=== PATIENT | male | born 1980 | race Caucasian/White ===

== ENCOUNTER 2018-11-30 12:56 | Inpatient (IN) | payer OTHER ==
[2018-11-30 17:18] VITALS: BMI 23.6
--- NOTE | 2018-11-30 18:44 | HP ---
COWS - Scale Resting Pulse: 0= [place] 80 or Below Sweatin= Chills/Flushing Restless Observation: 1= Difficult to Sit Still Pupil Size: 0= Normal to Room Light Bone or Joint Aches: 2= Severe Diffuse Aches Runny Nose/ Eye Tearin= Nasal Congestion GI Upset > 30mins: 2= Nausea/Diarrhea Tremor Observation: 2= Slight Tremor Visible Yawning Observation: 1= 1-2x During Session Anxiety or Irritability: 2=Irritable/Anxious Goose Flesh Skin: 3=Piloerection COWS Score: 15 CIWA Score - Admission Criteria OASAS Guidelines: Admission for Medically Managed Detox: Requires at least one of the followin. CIWA greater than 12 2. Seizures within the past 24 hours 3. Delirium tremens within the past 24 hours 4. Hallucinations within the past 24 hours 5. Acute intervention needed for co occurring medical disorder 6. Acute intervention needed for co occurring psychiatric disorder 7. Severe withdrawal that cannot be handled at a lower level of care (continued vomiting, continued diarrhea, abnormal vital signs) requiring intravenous medication and/or fluids 8. Admission ROS [facility] Chief Complaint: I am here for detox from heroin Allergies/Adverse Reactions: Allergies Allergy/AdvReac Type Severity Reaction Status Date / Time No Known Allergies Allergy Verified 11/30/18 17:12 History of Present Illness: 38 year old male presents for detox from heroin. He reports his last treatment was 6 months ago at [facility] in [place], [place]. Exam Limitations: No Limitations - Ebola screening Have you traveled outside of the country in the last 21 days: No (N) Have you had contact with anyone from an Ebola affected area: No Have you been sick,other than usual withdrawal symptoms: No Do you have a fever: No - Review of Systems Constitutional: Chills, Loss of Appetite, Changes in sleep EENT: reports: Blurred Vision, Nose Congestion Respiratory: reports: No Symptoms reported Cardiac: reports: No Symptoms Reported GI: reports: Nausea, Poor Fluid Intake, Abdominal cramping : reports: No Symptoms Reported Musculoskeletal: reports: Back Pain, Joint Pain, Muscle Pain, Muscle Weakness Integumentary: reports: Flushing Neuro: reports: Headache, Tremors Endocrine: reports: No Symptoms Reported Hematology: reports: Anemia Psychiatric: reports: Anxious, Depressed Other Systems: Reviewed and Negative Patient History - Patient Medical History Hx Anemia: Yes Hx Asthma: No Hx Chronic Obstructive Pulmonary Disease (COPD): No Hx Cancer: No Hx Cardiac Disorders: No Hx Congestive Heart Failure: No Hx Hypertension: No Hx Hypercholesterolemia: No Hx Pacemaker: No HX Cerebrovascular Accident: No Hx Seizures: No Hx Dementia: No Hx Diabetes: No Hx Gastrointestinal Disorders: No Hx Liver Disease: No Hx Genitourinary Disorders: No Hx Sexually Transmitted Disorders: No Hx Renal Disease (ESRD): No Hx Thyroid Disease: No Hx Human Immunodeficiency Virus (HIV): No Hx Hepatitis C: No Hx Depression: Yes Hx Suicide Attempt: No Hx Bipolar Disorder: No Hx Schizophrenia: No - Patient Surgical History Past Surgical History: No - PPD History Previous Implant?: No Documented Results: Negative w/o proof Implanted On Prior [facility] Admission?: No PPD to be Administered?: No - Smoking Cessation Smoking history: Current every day smoker Have you smoked in the past 12 months: Yes Aproximately how many cigarettes per day: 10 Hx Chewing Tobacco Use: No Initiated information on smoking cessation: Yes 'Breaking Loose' booklet given: 11/30/18 - Substance & Tx. History Hx Alcohol Use: No Hx Substance Use: Yes Substance Use Type: Heroin Hx Substance Use Treatment: Yes - Substances abused Heroin Substance route: Injection Frequency: Daily Amount used: 40bags/day Age of first use: 33 Date of last use: 11/30/18 Family Disease History - Family Disease History Family History: Denies Admission Physical Exam BHS - Vital Signs Vital Signs: Vital Signs - 24 hr 11/30/18 17:12 Temperature 98.0 F Pulse Rate 74 Respiratory 16 Rate Blood Pressure 105/70 - Physical General Appearance: Yes: No Apparent Distress HEENTM: Yes: Hearing grossly Normal, Normocephalic, Normal Voice, MILO, Pharynx Normal Respiratory: Yes: Chest Non-Tender, Lungs Clear Neck: Yes: No masses,lesions,Nodules, Supple Breast: Yes: Breast Exam Deferred Cardiology: Yes: Regular Rhythm, Regular Rate, S1, S2 Abdominal: Yes: Normal Bowel Sounds, Non Tender, Soft Genitourinary: Yes: Within Normal Limits Back: Yes: Normal Inspection Musculoskeletal: Yes: full range of Motion, Gait Steady, Pelvis Stable Extremities: Yes: Tremors, Coldness Neurological: Yes: computer systems architect II-XII NML intact, Fully Oriented, Alert, Normal Mood/ Affect, Normal Response Integumentary: Yes: Clammy, Track Boudreaux Lymphatic: Yes: Within Normal Limits - Diagnostic (1) Heroin dependence Current Visit: Yes Status: Acute (2) Nicotine dependence Current Visit: Yes Status: Acute Qualifiers: Nicotine product type: cigarettes Substance use status: uncomplicated Qualified Code(s): F17.210 - Nicotine dependence, cigarettes, uncomplicated (3) Marijuana abuse Current Visit: Yes Status: Acute Cleared for Admission S - Detox or Rehab [facility] Level of Care: Medically Managed Detox Regimen/Protocol: Methadone Claeared for Rehab Admission: No Breathalyzer - Breathalyzer Breathalyzer: 0 Urine Drug Screen - Test Device Lot number: [id number] Expiration date: 09/17/20 - Control Is test valid?: Yes - Results Drug screen NEGATIVE: No Urine drug screen results: THC-Marijuana, JAYNE-Cocaine, FEN-Fentanyl, MOP-Opiates , OXY-Oxycodone Inpatient Rehab Admission - Rehab Decision to Admit Inpatient rehab admission?: No
[2018-11-30] MEDS ORDERED: MAGNESIUM HYDROX 2400MG/30ML ORAL SUSPENSION 30 ML CUP PO PRN (18:46)
[2018-11-30] MEDS ORDERED: ACETAMINOPHEN 325 MG TABLET (FP) PO PRN ×2 (18:46)
[2018-11-30] MEDS ORDERED: MAGNESIUM CITRATE 300 ML BOTTLE PO PRN (18:46)
[2018-11-30] MEDS ORDERED: METHADONE HCL 10 MG TABLET (FOR DETOX USE ONLY) PO ONE (18:46)
[2018-11-30] MEDS ORDERED: BISMUTH SUBSALICYLATE 524 MG/30 ML UD PO PRN (18:46)
[2018-11-30] MEDS ORDERED: IBUPROFEN 400 MG TABLET (FP) PO PRN (18:46)
[2018-11-30] MEDS ORDERED: cloNIDine HCL 0.1 MG TABLET PO PRN (18:46)
[2018-11-30] MEDS ORDERED: MAG HYDROX/AL HYDROX/SIMETH 30 ML UNIT-DOSE CUP PO PRN (18:46)
[2018-11-30] MEDS ORDERED: MELATONIN 5 MG TABLETS PO PRN (18:46)
[2018-11-30] MEDS ORDERED: NICOTINE POLACRILEX 2 MG GUM BUC PRN (18:46)
[2018-11-30] MEDS ORDERED: MENTHOL/PHENOL 1 EACH UD MM PRN (18:46)
[2018-11-30] MEDS: NICOTINE 14 MG/24 HOURS TOPICAL PATCH TD SCH (20:35)
[2018-11-30] MEDS: THIAMINE HCL 100 MG TABLET (FP) PO SCH (22:24)
--- NOTE | 2018-12-01 08:53 | EKG ---
Test Reason : Blood Pressure : / mmHG Vent. Rate : 063 BPM Atrial Rate : 063 BPM P-R Int : 136 ms QRS Dur : 092 ms QT Int : 420 ms P-R-T Axes : 044 061 043 degrees QTc Int : 429 ms NORMAL SINUS RHYTHM WITH SINUS ARRHYTHMIA MINIMAL VOLTAGE CRITERIA FOR LVH, MAY BE NORMAL VARIANT BORDERLINE ECG NO PREVIOUS ECGS AVAILABLE Confirmed by ANILA CHAPIN, ELADIA ([id number]) on 12/01/2018 8:53:23 AM Referred By: OSCAR MARX Confirmed By:ELADIA HIGH MD
[2018-12-01] MEDS ORDERED: METHADONE HCL 5 MG TABLET (FOR DETOX USE ONLY) PO ONE (10:00)
[2018-12-01] MEDS: PRENATAL VITAMINS W/ FOLIC ACID TABLET (FP) PO SCH (10:11)
[2018-12-01] MEDS: NICOTINE 14 MG/24 HOURS TOPICAL PATCH TD SCH (10:13)
[2018-12-01] MEDS: METHOCARBAMOL 500 MG TABLET PO PRN (10:13)
[2018-12-01 10:19] LABS: ALBUMIN 3.4 g/dl (3.4-5.0); BILIRUBIN,TOTAL 0.5 mg/dL (0.2-1); BLOOD UREA NITROGEN 18.1 mg/dL (7-18); CALCIUM 8.7 mg/dL (8.5-10.1); POTASSIUM 4.5 mmol/L (3.5-5.1)
[2018-12-01 10:22] LABS: HEMATOCRIT 33.4 % (35.4-49); HEMOGLOBIN 11.4 GM/dL (11.7-16.9); MCH 31.1 pg (25.7-33.7); MEAN CELL VOLUME 91.3 fl (80-96); MEAN PLT VOLUME 8.8 fl (7.5-11.1); RBC 3.66 M/mm3 (4.00-5.60); RDW 12.6 % (11.9-15.9); WHITE BLOOD COUNT 3.8 K/mm3 (4.0-10.0)
[2018-12-01 10:38] LABS: PLATELET COUNT 269 K/MM3 (134-434)
--- NOTE | 2018-12-01 11:10 | PN ---
[facility] COWS - Scale Resting Pulse: 0= [place] 80 or Below Sweatin= Chills/Flushing Restless Observation: 1= Difficult to Sit Still Pupil Size: 1= Pupils >than Normal Bone or Joint Aches: 1= Mild Discomfort Runny Nose/ Eye Tearin= Nasal Congestion GI Upset > 30mins: 1= Stomach Cramp Tremor Observation of Outstretched Hands: 1= Tremor [place], Not Seen Yawning Observation: 2= >3x During Session Anxiety or Irritability: 1=Feels Anxious/Irritable Goose Flesh Skin: 3=Piloerection COWS Score: 13 S Progress Note (SOAP) Subjective: 38 years old male admitted on 11/30/18 for opiate withdrawal sx denies medical issues doing well with methadone detox regimen discuss medication assisted treatment program Objective: 12/01/18 11:12 Vital Signs Temperature 98.2 F 12/01/18 09:26 Pulse Rate 57 L 12/01/18 09:26 Respiratory Rate 18 12/01/18 09:26 Blood Pressure 95/52 L 12/01/18 09:26 O2 Sat by Pulse Oximetry (%) Laboratory Last Values WBC 3.8 K/mm3 (4.0-10.0) L 12/01/18 07:50 RBC 3.66 M/mm3 (4.00-5.60) L 12/01/18 07:50 Hgb 11.4 GM/dL (11.7-16.9) L 12/01/18 07:50 Hct 33.4 % (35.4-49) L 12/01/18 07:50 MCV 91.3 fl (80-96) 12/01/18 07:50 MCH 31.1 pg (25.7-33.7) 12/01/18 07:50 MCHC 34.0 g/dl (32.0-35.9) 12/01/18 07:50 RDW 12.6 % (11.9-15.9) 12/01/18 07:50 Plt Count 269 K/MM3 (134-434) 12/01/18 07:50 MPV 8.8 fl (7.5-11.1) 12/01/18 07:50 Sodium 139 mmol/L (136-145) 12/01/18 07:50 Potassium 4.5 mmol/L (3.5-5.1) 12/01/18 07:50 Chloride 105 mmol/L (98-107) 12/01/18 07:50 Carbon Dioxide 29 mmol/L (21-32) 12/01/18 07:50 Anion Gap 6 MMOL/L (8-16) L 12/01/18 07:50 BUN 18.1 mg/dL (7-18) H 12/01/18 07:50 Creatinine 1.0 mg/dL (0.55-1.3) 12/01/18 07:50 Est GFR (CKD-EPI)AfAm 110.94 12/01/18 07:50 Est GFR (CKD-EPI)NonAf 95.72 12/01/18 07:50 Random Glucose 79 mg/dL (74-106) 12/01/18 07:50 Calcium 8.7 mg/dL (8.5-10.1) 12/01/18 07:50 Total Bilirubin 0.5 mg/dL (0.2-1) 12/01/18 07:50 AST 22 U/L (15-37) 12/01/18 07:50 ALT 25 U/L (13-61) 12/01/18 07:50 Alkaline Phosphatase 91 U/L (45-117) 12/01/18 07:50 Total Protein 7.0 g/dl (6.4-8.2) 12/01/18 07:50 Albumin 3.4 g/dl (3.4-5.0) 12/01/18 07:50 lab noted Assessment: 12/01/18 11:13 opiate withdrawal sx Plan: continue opiate detox
[2018-12-01] MEDS ORDERED: hydrOXYzine HCL 25 MG TABLET (FP) PO ONE ×2 (12:15→15:00)
[2018-12-01] MEDS: THIAMINE HCL 100 MG TABLET (FP) PO SCH (22:20)
[2018-12-02 09:04] VITALS: BP 114/76; PULSE 57; TEMP 97.7
[2018-12-02] MEDS ORDERED: hydrOXYzine HCL 25 MG TABLET (FP) PO PRN (09:47)
[2018-12-02] MEDS ORDERED: cloNIDine HCL 0.1 MG TABLET PO PRN (09:48)
[2018-12-02] MEDS ORDERED: METHADONE HCL 10 MG TABLET (FOR DETOX USE ONLY) PO ONE (10:00)
[2018-12-02] MEDS: METHOCARBAMOL 500 MG TABLET PO PRN (10:17)
[2018-12-02] MEDS: PRENATAL VITAMINS W/ FOLIC ACID TABLET (FP) PO SCH (10:17)
[2018-12-02] MEDS: NICOTINE 14 MG/24 HOURS TOPICAL PATCH TD SCH (10:17)
--- NOTE | 2018-12-02 10:25 | DS ---
[facility] Detox Discharge Summary Admission Date: 11/30/18 Discharge Date: 12/02/18 - History Present History: Opioid Dependence Additional Comments: 38 years old male admitted on 11/30/18 for opiate withdrawal sx patient is doing well through out the detox stay feeling better today prefers to leave the detox today the counselor offers [facility] that the patient is willing to accept the rehab - Physical Exam Results Vital Signs: Vital Signs Temperature 97.7 F 12/02/18 09:03 Pulse Rate 57 L 12/02/18 09:03 Respiratory Rate 16 12/02/18 09:03 Blood Pressure 114/76 12/02/18 09:03 O2 Sat by Pulse Oximetry (%) Pertinent Admission Physical Exam Findings: opiate withdrawal sx Laboratory Last Values WBC 3.8 K/mm3 (4.0-10.0) L 12/01/18 07:50 RBC 3.66 M/mm3 (4.00-5.60) L 12/01/18 07:50 Hgb 11.4 GM/dL (11.7-16.9) L 12/01/18 07:50 Hct 33.4 % (35.4-49) L 12/01/18 07:50 MCV 91.3 fl (80-96) 12/01/18 07:50 MCH 31.1 pg (25.7-33.7) 12/01/18 07:50 MCHC 34.0 g/dl (32.0-35.9) 12/01/18 07:50 RDW 12.6 % (11.9-15.9) 12/01/18 07:50 Plt Count 269 K/MM3 (134-434) 12/01/18 07:50 MPV 8.8 fl (7.5-11.1) 12/01/18 07:50 Sodium 139 mmol/L (136-145) 12/01/18 07:50 Potassium 4.5 mmol/L (3.5-5.1) 12/01/18 07:50 Chloride 105 mmol/L (98-107) 12/01/18 07:50 Carbon Dioxide 29 mmol/L (21-32) 12/01/18 07:50 Anion Gap 6 MMOL/L (8-16) L 12/01/18 07:50 BUN 18.1 mg/dL (7-18) H 12/01/18 07:50 Creatinine 1.0 mg/dL (0.55-1.3) 12/01/18 07:50 Est GFR (CKD-EPI)AfAm 110.94 12/01/18 07:50 Est GFR (CKD-EPI)NonAf 95.72 12/01/18 07:50 Random Glucose 79 mg/dL (74-106) 12/01/18 07:50 Calcium 8.7 mg/dL (8.5-10.1) 12/01/18 07:50 Total Bilirubin 0.5 mg/dL (0.2-1) 12/01/18 07:50 AST 22 U/L (15-37) 12/01/18 07:50 ALT 25 U/L (13-61) 12/01/18 07:50 Alkaline Phosphatase 91 U/L (45-117) 12/01/18 07:50 Total Protein 7.0 g/dl (6.4-8.2) 12/01/18 07:50 Albumin 3.4 g/dl (3.4-5.0) 12/01/18 07:50 RPR Titer Nonreactive (NONREACTIVE) 12/01/18 07:50 lab noted - Treatment Hospital Course: Detox Protocol Followed, Detoxed Safely, Responded well, Discharged Condition Good, Rehab Referral Accepted Patient has Accepted a [facility] Referral [facility]: [facility] - Medication Discharge Medications: Ambulatory Orders NK [No Known Home Medication] 11/30/18 - Diagnosis (1) Heroin dependence Status: Acute (2) Nicotine dependence Status: Acute Qualifiers: Nicotine product type: cigarettes Substance use status: in withdrawal Qualified Code(s): F17.213 - Nicotine dependence, cigarettes, with withdrawal - AMA Did Patient Leave Against Medical Advice: No
--- NOTE | 2018-12-02 11:11 | CONSULT ---
[facility] Psychiatric Consult - Data Date of interview: 12/02/18 Admission source: [facility] Identifying data: Patient discharged this morning. Unable to complete psychiatric consultation.
[2018-12-03] MEDS ORDERED: METHADONE HCL 5 MG TABLET (FOR DETOX USE ONLY) PO ONE (06:00)
== END 2018-12-02 10:20 | disposition home or self-care (01) | DRG 773 ==
LOC: YASAS 12:56 → Y3N 19:42
PROVIDERS: ADMIT Surgery; ATTEND Surgery
PROC: HZ2ZZZZ Detoxification Services for Substance Abuse Treatment (ICD-10-PCS; principal; 2018-11-30)
DX: F11.23 Opioid dependence with withdrawal (principal); F12.10 Cannabis abuse, uncomplicated; F17.213 Nicotine dependence, cigarettes, with withdrawal; F32.9 Major depressive disorder, single episode, unspecified; Z86.2 Personal history of diseases of the blood and blood-forming organs and certain disorders involving the immune mechanism
CPT/HCPCS: 36415; 80053; 85027; 86480; 86593; 93005; 93010

== ENCOUNTER 2019-05-05 18:26 | Inpatient (IN) | payer OTHER ==
[2019-05-05 18:54] VITALS: BMI 24.5
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
[2019-05-05] MEDS ORDERED: ACETAMINOPHEN 325 MG TABLET (FP) PO PRN ×2 (19:57)
[2019-05-05] MEDS ORDERED: MAGNESIUM HYDROX 2400MG/30ML ORAL SUSPENSION 30 ML CUP PO PRN (19:57)
[2019-05-05] MEDS ORDERED: METHOCARBAMOL 500 MG TABLET PO PRN (19:57)
[2019-05-05] MEDS ORDERED: IBUPROFEN 400 MG TABLET (FP) PO PRN (19:57)
[2019-05-05] MEDS ORDERED: PROCHLORPERAZINE MALEATE 5 MG TABLET PO PRN (19:57)
[2019-05-05] MEDS ORDERED: BISMUTH SUBSALICYLATE 524 MG/30 ML UD PO PRN (19:57)
[2019-05-05] MEDS ORDERED: MENTHOL/PHENOL 1 EACH UD MM PRN (19:57)
[2019-05-05] MEDS ORDERED: MELATONIN 5 MG TABLETS PO PRN (19:57)
[2019-05-05] MEDS ORDERED: MAG HYDROX/AL HYDROX/SIMETH 30 ML UNIT-DOSE CUP PO PRN (19:57)
[2019-05-05] MEDS ORDERED: MAGNESIUM CITRATE 300 ML BOTTLE PO PRN (19:57)
[2019-05-05] MEDS ORDERED: cloNIDine HCL 0.1 MG TABLET PO PRN (19:59)
[2019-05-05] MEDS ORDERED: METHADONE HCL 10 MG TABLET (FOR DETOX USE ONLY) PO ONE (21:00)
[2019-05-05] MEDS: diazePAM 5 MG TABLET PO SCH (21:07)
[2019-05-05] MEDS: THIAMINE HCL 100 MG TABLET (FP) PO SCH (21:07)
[2019-05-05] MEDS ORDERED: QUEtiapine FUMARATE 50 MG TABLET PO ONE (22:00)
[2019-05-05] MEDS: SILVER SULFADIAZINE 1% TOP CREAM 50 GM JAR TP SCH (23:50)
[2019-05-06] MEDS: diazePAM 5 MG TABLET PO SCH ×3 (06:09→22:51)
--- NOTE | 2019-05-06 09:49 | EKG ---
Test Reason : Blood Pressure : / mmHG Vent. Rate : 073 BPM Atrial Rate : 073 BPM P-R Int : 144 ms QRS Dur : 092 ms QT Int : 382 ms P-R-T Axes : 041 059 044 degrees QTc Int : 420 ms NORMAL SINUS RHYTHM MINIMAL VOLTAGE CRITERIA FOR LVH, MAY BE NORMAL VARIANT ST ELEVATION, CONSIDER EARLY REPOLARIZATION BORDERLINE ECG WHEN COMPARED WITH ECG OF 30-NOV-2018 19:54, NO SIGNIFICANT CHANGE WAS FOUND Confirmed by MD Timbo, Sal ([id number]) on 05/06/2019 9:49:05 AM Referred By: JOSUE Confirmed By:Sal Izquierdo MD
[2019-05-06] MEDS ORDERED: METHADONE HCL 5 MG TABLET (FOR DETOX USE ONLY) ONE (09:52)
[2019-05-06] MEDS ORDERED: METHADONE HCL 10 MG TABLET (FOR DETOX USE ONLY) ONE (09:52)
[2019-05-06 09:56] LABS: HEMATOCRIT 32.6 % (35.4-49); HEMOGLOBIN 11.2 GM/dL (11.7-16.9); MCH 31.7 pg (25.7-33.7); MCHC 34.4 g/dl (32.0-35.9); MEAN CELL VOLUME 92.3 fl (80-96); PLATELET COUNT 232 K/MM3 (134-434); RBC 3.53 M/mm3 (4.00-5.60); RDW 13.1 % (11.9-15.9); WHITE BLOOD COUNT 4.7 K/mm3 (4.0-10.0)
[2019-05-06] MEDS ORDERED: METHADONE (DETOX) 20 MG, METHADONE (DETOX) 5 MG PO ONE (10:00)
--- NOTE | 2019-05-06 10:03 | PN ---
[facility] CIWA - CIWA Score Nausea/Vomitin-No Nausea/No Vomiting Muscle Tremors: 3 Anxiety: 3 Agitation: 3 Paroxysmal Sweats: 2 Orientation: 0-Oriented Tacttile Disturbances: 0-None Auditory Disturbances: 0-None Visual Disturbances: 0-None Headache: 0-None Present CIWA-Ar Total Score: 11 S COWS - Scale Resting Pulse: 0= [place] 80 or Below Sweatin= Chills/Flushing Restless Observation: 1= Difficult to Sit Still Pupil Size: 0= Normal to Room Light Bone or Joint Aches: 1= Mild Discomfort Runny Nose/ Eye Tearin= Runny Nose/Eyes GI Upset > 30mins: 0= None Tremor Observation of Outstretched Hands: 1= Tremor [place], Not Seen Yawning Observation: 2= >3x During Session Anxiety or Irritability: 2=Irritable/Anxious Goose Flesh Skin: 0=Smooth Skin COWS Score: 10 [facility] Progress Note (SOAP) Subjective: sweats shakes interrupted sleep body aches restless irritable Objective: 05/06/19 10:03 Vital Signs Temperature 98.2 F 05/06/19 09:28 Pulse Rate 79 05/06/19 09:28 Respiratory Rate 18 05/06/19 09:28 Blood Pressure 129/86 05/06/19 09:28 O2 Sat by Pulse Oximetry (%) Laboratory Tests 05/06/19 08:00 WBC 4.7 RBC 3.53 L Hgb 11.2 L Hct 32.6 L MCV 92.3 MCH 31.7 MCHC 34.4 RDW 13.1 Plt Count 232 MPV 9.0 rest of labs pending aaox3 ambulating no acute distress Assessment: 05/06/19 10:03 withdrawals Plan: continue detox pending labs increase fluids
[2019-05-06] MEDS: PRENATAL VITAMINS W/ FOLIC ACID TABLET (FP) PO SCH (10:37)
[2019-05-06] MEDS: SILVER SULFADIAZINE 1% TOP CREAM 50 GM JAR TP SCH ×2 (10:39→22:52)
[2019-05-06 10:55] LABS: ALBUMIN 3.3 g/dl (3.4-5.0); BILIRUBIN,TOTAL 0.2 mg/dL (0.2-1); BLOOD UREA NITROGEN 12.8 mg/dL (7-18); CALCIUM 8.9 mg/dL (8.5-10.1); TOT PROT 6.4 g/dl (6.4-8.2)
[2019-05-06] MEDS: hydrOXYzine PAMOATE 25 MG CAPSULE (FP) PO PRN (22:51)
[2019-05-06] MEDS: THIAMINE HCL 100 MG TABLET (FP) PO SCH (22:51)
[2019-05-07] MEDS: diazePAM 5 MG TABLET PO SCH ×2 (05:59→17:37)
[2019-05-07] MEDS ORDERED: METHADONE HCL 10 MG TABLET (FOR DETOX USE ONLY) PO ONE (10:00)
--- NOTE | 2019-05-07 10:05 | PN ---
[facility] CIWA - CIWA Score Nausea/Vomitin-No Nausea/No Vomiting Muscle Tremors: 3 Anxiety: 2 Agitation: 2 Paroxysmal Sweats: 2 Orientation: 0-Oriented Tacttile Disturbances: 0-None Auditory Disturbances: 0-None Visual Disturbances: 0-None Headache: 0-None Present CIWA-Ar Total Score: 9 [facility] COWS - Scale Resting Pulse: 0= [place] 80 or Below Sweatin= Chills/Flushing Restless Observation: 1= Difficult to Sit Still Pupil Size: 0= Normal to Room Light Bone or Joint Aches: 1= Mild Discomfort Runny Nose/ Eye Tearin= None GI Upset > 30mins: 0= None Tremor Observation of Outstretched Hands: 1= Tremor [place], Not Seen Yawning Observation: 1= 1-2x During Session Anxiety or Irritability: 2=Irritable/Anxious Goose Flesh Skin: 0=Smooth Skin COWS Score: 7 S Progress Note (SOAP) Subjective: sweats irritable agitation anxiety interrupted sleep Objective: 05/07/19 10:20 Vital Signs Temperature 97.9 F 05/07/19 05:00 Pulse Rate 53 L 05/07/19 05:00 Respiratory Rate 18 05/07/19 05:00 Blood Pressure 108/68 05/07/19 05:00 O2 Sat by Pulse Oximetry (%) Laboratory Tests 05/06/19 05/06/19 05/06/19 08:00 08:00 08:00 WBC 4.7 RBC 3.53 L Hgb 11.2 L Hct 32.6 L MCV 92.3 MCH 31.7 MCHC 34.4 RDW 13.1 Plt Count 232 MPV 9.0 Sodium 142 Potassium 4.0 Chloride 108 H Carbon Dioxide 29 Anion Gap 5 L BUN 12.8 Creatinine 1.0 Est GFR (CKD-EPI)AfAm 110.17 Est GFR (CKD-EPI)NonAf 95.05 Random Glucose 86 Calcium 8.9 Total Bilirubin 0.2 AST 16 ALT 20 Alkaline Phosphatase 94 Total Protein 6.4 Albumin 3.3 L RPR Titer Nonreactive aaox3 ambulating no acute distress Assessment: 05/07/19 10:21 withdrawals Plan: continue detox increase fluids
[2019-05-07] MEDS: PRENATAL VITAMINS W/ FOLIC ACID TABLET (FP) PO SCH (10:50)
[2019-05-07] MEDS: SILVER SULFADIAZINE 1% TOP CREAM 50 GM JAR TP SCH ×2 (10:52→21:13)
[2019-05-07] MEDS: diazePAM 5 MG TABLET PO PRN ×3 (10:54→20:03)
--- NOTE | 2019-05-07 11:30 | CONSULT ---
[facility] Psychiatric Consult - Data Date of interview: 05/07/19 Admission source: [facility] Identifying data: Patient is a 39 year old [place] male, father of three, unemployed, domiciled, and is not currently receiving financial assistance. This is one of multiple admissions for patient. Patient admitted to for opiate and benzodiazepine dependence. Substance Abuse History: Smoking Cessation. Smoking history: Current every day smoker. Have you smoked in the past 12 months: Yes. Aproximately how many cigarettes per day: 10. Hx Chewing Tobacco Use: No. Initiated information on smoking cessation: Yes. 'Breaking Loose' booklet given: 05/05/19. - Substances abused. Heroin. Substance route: Injection. Frequency: Daily. Amount used: 20-40 bags. Age of first use: 33. Date of last use: 05/05/19 Medical History: Anemia Psychiatric History: Patient denies history of psychiatric hospitalizations and suicide attempt. Reports history of seeing a psychiatrist in a methadone program or when admitted to detox/rehab facilities. Reports past history of accepting wellbutrin and gabapentin but states it was ineffective. States that he was receiving treatment at [facility] inpatient rehab last year and was prescribed seroquel 200mg + 300mg HS. Denies accepting psychotropic medication since discharge. States that his depression is secondary to his drug use. At present he reports difficulty sleeping. Physical/Sexual Abuse/Trauma History: denies. Mental Status Exam - Mental Status Exam Alert and Oriented to: Time, Place, Person Cognitive Function: Good Patient Appearance: Well Groomed Mood: Withdrawn Patient Behavior: Appropriate, Cooperative Speech Pattern: Appropriate Voice Loudness: Normal Thought Process: Goal Oriented Thought Disorder: Not Present Hallucinations: Denies Suicidal Ideation: Denies Homicidal Ideation: Denies Insight/Judgement: Poor Sleep: Poorly Appetite: Fair Muscle strength/Tone: Normal Gait/Station: Normal Psychiatric Findings - Problem List ([place] 1, 2,3) (1) Substance-induced sleep disorder Current Visit: Yes Status: Acute (2) Heroin dependence Current Visit: Yes Status: Chronic (3) Marijuana abuse Current Visit: Yes Status: Chronic (4) Nicotine dependence Current Visit: Yes Status: Chronic Qualifiers: Nicotine product type: cigarettes (5) Substance induced mood disorder Current Visit: Yes Status: Acute - Initial Treatment Plan Initial Treatment Plan: Psychoeducation provided. Detoxification in progress. Will order Seroquel 100mg + Melatonin 10mg HS. Benefits and side effects discussed. Verbal consent given.
[2019-05-07] MEDS: hydrOXYzine PAMOATE 25 MG CAPSULE (FP) PO PRN (13:24)
[2019-05-07] MEDS: THIAMINE HCL 100 MG TABLET (FP) PO SCH (21:12)
[2019-05-07] MEDS ORDERED: MELATONIN 5 MG TABLETS PO PRN (22:00)
[2019-05-07] MEDS ORDERED: QUEtiapine FUMARATE 100 MG TABLET (FP) PO SCH (22:00)
[2019-05-08] MEDS: hydrOXYzine PAMOATE 25 MG CAPSULE (FP) PO PRN (02:02)
[2019-05-08] MEDS ORDERED: diazePAM 5 MG TABLET PO ONE (06:00)
--- NOTE | 2019-05-08 08:55 | PN ---
[facility] Progress Note Note: pt states that a week or two weeks ago he was at [facility] for a three day detox then he left and went to [facility] 4 day detox then he left and came to us for detox. Pt states he is feeling better and good enough to go to rehab for continued care. Pt states he failed to tell this information to admitting doctor because he wanted more methadone. Pt was educated on the purpose of detox and stability and moving on with his sobriety with rehab and maintaining sober. Pt was understanding advise and is willing to go to rehab today. Pt will receive his last dose of methadone and go to rehab
--- NOTE | 2019-05-08 08:58 | DS ---
[facility] Detox Discharge Summary Admission Date: 05/05/19 Discharge Date: 05/08/19 - History Present History: Cannabis Dependence, Opioid Dependence - Physical Exam Results Vital Signs: Vital Signs Temperature 97.5 F L 05/08/19 06:14 Pulse Rate 60 05/08/19 06:14 Respiratory Rate 18 05/08/19 06:14 Blood Pressure 118/60 05/08/19 06:14 O2 Sat by Pulse Oximetry (%) Pertinent Admission Physical Exam Findings: Vital Signs Temperature 97.5 F L 05/08/19 06:14 Pulse Rate 60 05/08/19 06:14 Respiratory Rate 18 05/08/19 06:14 Blood Pressure 118/60 05/08/19 06:14 O2 Sat by Pulse Oximetry (%) Laboratory Tests 05/06/19 05/06/19 05/06/19 08:00 08:00 08:00 WBC 4.7 RBC 3.53 L Hgb 11.2 L Hct 32.6 L MCV 92.3 MCH 31.7 MCHC 34.4 RDW 13.1 Plt Count 232 MPV 9.0 Sodium 142 Potassium 4.0 Chloride 108 H Carbon Dioxide 29 Anion Gap 5 L BUN 12.8 Creatinine 1.0 Est GFR (CKD-EPI)AfAm 110.17 Est GFR (CKD-EPI)NonAf 95.05 Random Glucose 86 Calcium 8.9 Total Bilirubin 0.2 AST 16 ALT 20 Alkaline Phosphatase 94 Total Protein 6.4 Albumin 3.3 L RPR Titer Nonreactive aaox3 ambulating no acute distress - Treatment Hospital Course: Detox Protocol Followed, Detoxed Safely, Responded well, Discharged Condition Good, Rehab Referral Accepted Patient has Accepted a Rehab Referral to: pt referred to [facility] rehab - Medication Discharge Medications: Ambulatory Orders NK [No Known Home Medication] 11/30/18 - Diagnosis (1) Substance induced mood disorder Current Visit: Yes Status: Acute (2) Substance-induced sleep disorder Current Visit: Yes Status: Acute (3) Marijuana abuse Current Visit: Yes Status: Chronic (4) Nicotine dependence Current Visit: Yes Status: Chronic Qualifiers: Nicotine product type: cigarettes Substance use status: uncomplicated Qualified Code(s): F17.210 - Nicotine dependence, cigarettes, uncomplicated (5) Opioid dependence with withdrawal Current Visit: Yes Status: Chronic - AMA Did Patient Leave Against Medical Advice: No
[2019-05-08] MEDS ORDERED: METHADONE HCL 10 MG TABLET (FOR DETOX USE ONLY) PO ONE (09:00)
[2019-05-08 09:49] VITALS: BP 138/81; PULSE 72; TEMP 97.3
[2019-05-08] MEDS ORDERED: METHADONE (DETOX) 10 MG, METHADONE (DETOX) 5 MG PO ONE (10:00)
[2019-05-09] MEDS ORDERED: METHADONE HCL 10 MG TABLET (FOR DETOX USE ONLY) PO ONE (10:00)
[2019-05-10] MEDS ORDERED: METHADONE HCL 5 MG TABLET (FOR DETOX USE ONLY) PO ONE (06:00)
== END 2019-05-08 09:45 | disposition home or self-care (01) | DRG 773 ==
LOC: YASAS 18:26 → Y6N 20:19
PROVIDERS: ADMIT Allergy & Immunology; ATTEND Allergy & Immunology
PROC: HZ2ZZZZ Detoxification Services for Substance Abuse Treatment (ICD-10-PCS; principal; 2019-05-05)
DX: F11.23 Opioid dependence with withdrawal (principal); F12.10 Cannabis abuse, uncomplicated; F17.210 Nicotine dependence, cigarettes, uncomplicated; F19.24 Other psychoactive substance dependence with psychoactive substance-induced mood disorder; F19.282 Other psychoactive substance dependence with psychoactive substance-induced sleep disorder; D64.9 Anemia, unspecified
CPT/HCPCS: 36415; 80053; 85027; 86593; 93005; 93010

== ENCOUNTER 2019-06-13 18:29 | Inpatient (IN) | payer OTHER ==
[2019-06-13 19:30] VITALS: BMI 23.4
--- NOTE | 2019-06-13 22:27 | HP ---
COWS - Scale Resting Pulse: 0= [place] 80 or Below Sweatin=Flushed/Facial Moisture Restless Observation: 0= Sits Still Pupil Size: 0= Normal to Room Light Bone or Joint Aches: 4=Acute Joint/Muscle Pain Runny Nose/ Eye Tearin= Nasal Congestion GI Upset > 30mins: 1= Stomach Cramp Tremor Observation: 0= None Yawning Observation: 1= 1-2x During Session Anxiety or Irritability: 2=Irritable/Anxious Goose Flesh Skin: 3=Piloerection COWS Score: 14 CIWA Score - Admission Criteria OASAS Guidelines: Admission for Medically Managed Detox: Requires at least one of the followin. CIWA greater than 12 2. Seizures within the past 24 hours 3. Delirium tremens within the past 24 hours 4. Hallucinations within the past 24 hours 5. Acute intervention needed for co occurring medical disorder 6. Acute intervention needed for co occurring psychiatric disorder 7. Severe withdrawal that cannot be handled at a lower level of care (continued vomiting, continued diarrhea, abnormal vital signs) requiring intravenous medication and/or fluids 8. Admitting History and Physical - Smoking History Smoking history: Current every day smoker Have you smoked in the past 12 months: Yes Aproximately how many cigarettes per day: 10 - Alcohol/Substance Use Hx Alcohol Use: No Admission ROS [facility] Chief Complaint: c/o withdrawal sx's Allergies/Adverse Reactions: Allergies Allergy/AdvReac Type Severity Reaction Status Date / Time No Known Allergies Allergy Verified 06/13/19 19:26 History of Present Illness: HERE FOR HEROIN DETOX. CLIENT IS SELF REFERRED KNOWN TO PROGRAM. PRESENTS WITH C /O WITHDRAWAL SX'S. SEEKING DETOX. CLIENT REPORTS DAILY HEROIN USE. IVDU REPORTED. LAST USE 1 DAY AGO. HX/O 8 OVERDOSE, DENIES BLACK OUTS, SEIZURE, AVH. LONGEST CLEAN TIME 2 MONTHS. DENIES ANY IN THE PAST 1 YEAR. LIVES W/ FAMILY, UNEMPLOYED, DENIES LEGALS Exam Limitations: No Limitations - Ebola screening Have you traveled outside of the country in the last 21 days: No (N) Have you had contact with anyone from an Ebola affected area: No Do you have a fever: No - Review of Systems Constitutional: Chills, Loss of Appetite, Malaise, Night Sweats, Changes in sleep EENT: reports: Nose Congestion Respiratory: reports: No Symptoms reported Cardiac: reports: No Symptoms Reported GI: reports: Nausea, Poor Appetite, Poor Fluid Intake, Abdominal cramping : reports: No Symptoms Reported Musculoskeletal: reports: Back Pain, Joint Pain Integumentary: reports: Sweating (facial moisture) Neuro: reports: No Symptoms reported Endocrine: reports: No Symptoms Reported Hematology: reports: No Symptoms Reported Psychiatric: reports: Orientated x3, Depressed (denies si) Other Systems: Reviewed and Negative Patient History - Patient Medical History Hx Anemia: Yes Hx Asthma: No Hx Chronic Obstructive Pulmonary Disease (COPD): No Hx Cancer: No Hx Cardiac Disorders: No Hx Congestive Heart Failure: No Hx Hypertension: No Hx Hypercholesterolemia: No Hx Pacemaker: No HX Cerebrovascular Accident: No Hx Seizures: No Hx Dementia: No Hx Diabetes: No Hx Gastrointestinal Disorders: No Hx Liver Disease: No Hx Genitourinary Disorders: No Hx Sexually Transmitted Disorders: No Hx Renal Disease (ESRD): No Hx Thyroid Disease: No Hx Human Immunodeficiency Virus (HIV): No Hx Hepatitis C: No Hx Depression: Yes Hx Suicide Attempt: No Hx Bipolar Disorder: No Hx Schizophrenia: No - Patient Surgical History Past Surgical History: No Hx Neurologic Surgery: No Hx Cataract Extraction: No Hx Cardiac Surgery: No Hx Lung Surgery: No Hx Breast Surgery: No Hx Breast Biopsy: No Hx Abdominal Surgery: No Hx Appendectomy: No Hx Cholecystectomy: No Hx Genitourinary Surgery: No Hx Section: No Hx Orthopedic Surgery: No Anesthesia Reaction: No - PPD History Previous Implant?: Yes Documented Results: Negative w/proof Implanted On Prior [facility] Admission?: Yes Date: 11/18/18 Results: tb gold neg PPD to be Administered?: No - Smoking Cessation Smoking history: Current every day smoker Have you smoked in the past 12 months: Yes Aproximately how many cigarettes per day: 10 Hx Chewing Tobacco Use: No Initiated information on smoking cessation: Yes 'Breaking Loose' booklet given: 06/13/19 - Substance & Tx. History Hx Alcohol Use: No Hx Substance Use: Yes Substance Use Type: Cocaine, Heroin, Marijuana, Opiates Hx Substance Use Treatment: Yes ([facility]) - Substances abused Heroin Substance route: Injection Frequency: Daily Amount used: 30-40 bags/day Age of first use: 34 Date of last use: 06/12/19 Admission Physical Exam BHS - Vital Signs Vital Signs: Vital Signs - 24 hr 06/13/19 19:27 Temperature 97.8 F Pulse Rate 69 Respiratory 16 Rate Blood Pressure 127/79 - Physical General Appearance: Yes: Moderate Distress, Irritable, Sweating HEENTM: Yes: EOMI, Normocephalic, Normal Voice, MILO, Pharynx Normal, Nasal Congestion, Rhinorrhea Respiratory: Yes: Chest Non-Tender, Lungs Clear, Normal Breath Sounds, No Respiratory Distress, No Accessory Muscle Use Neck: Yes: No masses,lesions,Nodules, Supple, Trachea in good position Breast: Yes: Breasts Symetrical Cardiology: Yes: Regular Rate, S1, S2, Tachycardia Abdominal: Yes: Non Tender, Soft, Increased Bowel Sounds Genitourinary: Yes: Within Normal Limits Back: Yes: Normal Inspection Musculoskeletal: Yes: full range of Motion, Gait Steady Extremities: Yes: Normal Range of Motion, Non-Tender Neurological: Yes: Fully Oriented, Alert, Motor Strength 5/5, Depressed Affect Integumentary: Yes: Moist, Track Raphael Lymphatic: Yes: Within Normal Limits - Diagnostic (1) Cocaine dependence, uncomplicated Current Visit: Yes Status: Acute (2) Cannabis dependence, uncomplicated Current Visit: Yes Status: Acute (3) Benzodiazepine abuse, episodic Current Visit: Yes Status: Suspected (4) Substance induced mood disorder Current Visit: Yes Status: Suspected (5) Nicotine dependence Current Visit: Yes Status: Chronic Qualifiers: Nicotine product type: cigarettes Substance use status: uncomplicated Qualified Code(s): F17.210 - Nicotine dependence, cigarettes, uncomplicated (6) Opioid dependence with withdrawal Current Visit: Yes Status: Acute (7) IVDU (intravenous drug user) Current Visit: Yes Status: Acute (8) Track raphael due to intravenous drug abuse Current Visit: Yes Status: Acute Cleared for Admission [facility] - Detox or Rehab [facility] Level of Care: Medically Managed Detox Regimen/Protocol: Methadone Claeared for Rehab Admission: No Breathalyzer - Breathalyzer Breathalyzer: 0 Urine Drug Screen - Test Device Lot number: [id number] Expiration date: 12/18/20 - Control Is test valid?: Yes - Results Drug screen NEGATIVE: No Urine drug screen results: THC-Marijuana, JAYNE-Cocaine, FEN-Fentanyl, MOP-Opiates , BZO-Benzodiazepines Inpatient Rehab Admission - Rehab Decision to Admit Inpatient rehab admission?: No
[2019-06-13] MEDS ORDERED: BISMUTH SUBSALICYLATE 524 MG/30 ML UD PO PRN (22:30)
[2019-06-13] MEDS ORDERED: cloNIDine HCL 0.1 MG TABLET PO PRN (22:30)
[2019-06-13] MEDS ORDERED: IBUPROFEN 400 MG TABLET (FP) PO PRN (22:30)
[2019-06-13] MEDS ORDERED: METHOCARBAMOL 500 MG TABLET PO PRN (22:30)
[2019-06-13] MEDS ORDERED: MELATONIN 5 MG TABLETS PO PRN (22:30)
[2019-06-13] MEDS ORDERED: NALOXONE HCL 0.4 MG/ML VIAL IM PRN (22:30)
[2019-06-13] MEDS ORDERED: ACETAMINOPHEN 325 MG TABLET (FP) PO PRN ×2 (22:30)
[2019-06-13] MEDS ORDERED: MAGNESIUM CITRATE 300 ML BOTTLE PO PRN (22:30)
[2019-06-13] MEDS ORDERED: DICYCLOMINE HCL 10 MG CAPSULE PO PRN (22:30)
[2019-06-13] MEDS ORDERED: MAGNESIUM HYDROX 2400MG/30ML ORAL SUSPENSION 30 ML CUP PO PRN (22:30)
[2019-06-13] MEDS ORDERED: MAG HYDROX/AL HYDROX/SIMETH 30 ML UNIT-DOSE CUP PO PRN (22:30)
[2019-06-13] MEDS ORDERED: MENTHOL/PHENOL 1 EACH UD MM PRN (22:30)
[2019-06-13] MEDS ORDERED: P-EPHED 60MG/TRIPROLIDI 2.5MG TABLET PO PRN (22:30)
[2019-06-13] MEDS ORDERED: ONDANSETRON *ODT* 4 MG TABLET SL PRN (22:30)
[2019-06-13] MEDS ORDERED: guaiFENesin 200 MG/10 ML 10 ML UNIT-DOSE CUPS PO PRN (22:30)
[2019-06-13] MEDS ORDERED: METHADONE HCL 10 MG TABLET (FOR DETOX USE ONLY) PO ONE (22:45)
[2019-06-14] MEDS ORDERED: METHADONE HCL 10 MG TABLET (FOR DETOX USE ONLY) ONE (09:41)
[2019-06-14] MEDS ORDERED: METHADONE HCL 5 MG TABLET (FOR DETOX USE ONLY) ONE (09:41)
[2019-06-14] MEDS ORDERED: METHADONE (DETOX) 20 MG, METHADONE (DETOX) 5 MG PO ONE (10:00)
[2019-06-14] MEDS: PRENATAL VITAMINS W/ FOLIC ACID TABLET (FP) PO SCH (10:34)
[2019-06-14] MEDS: NICOTINE 14 MG/24 HOURS TOPICAL PATCH TD SCH (10:35)
--- NOTE | 2019-06-14 11:06 | CONSULT ---
[facility] Psychiatric Consult - Data Date of interview: 06/14/19 Admission source: [facility] Identifying data: Director Of Pulmonary Unit approached patient for psychiatric consultation. Patient stated, "i'm good, I don't need to speak to you."
--- NOTE | 2019-06-14 15:03 | PN ---
BHS COWS - Scale Resting Pulse: 0= [place] 80 or Below Sweatin= No chills or Flushing Restless Observation: 1= Difficult to Sit Still Pupil Size: 0= Normal to Room Light Bone or Joint Aches: 1= Mild Discomfort Runny Nose/ Eye Tearin= Nasal Congestion GI Upset > 30mins: 1= Stomach Cramp Tremor Observation of Outstretched Hands: 0= None Yawning Observation: 1= 1-2x During Session Anxiety or Irritability: 2=Irritable/Anxious Goose Flesh Skin: 3=Piloerection COWS Score: 10 BHS Progress Note (SOAP) Subjective: Anxious, Stomach Cramping, Fatigue. Objective: PATIENT A & O X 3, OBSERVED AMBULATING ON DETOX UNIT UNASSISTED. IN NO ACUTE DISTRESS. 06/14/19 15:03 Vital Signs Temperature 97.7 F 06/14/19 10:00 Pulse Rate 69 06/14/19 10:00 Respiratory Rate 16 06/14/19 10:00 Blood Pressure 130/78 06/14/19 10:00 O2 Sat by Pulse Oximetry (%) RESULTS OF LABS FROM 05/06/2019 NOTED. 06/14/19 15:05 Assessment: 06/14/19 15:05 WITHDRAWAL SYMPTOMS. Plan: CONTINUE DETOX.
[2019-06-14] MEDS: THIAMINE HCL 100 MG TABLET (FP) PO SCH (22:30)
[2019-06-15] MEDS ORDERED: METHADONE HCL 10 MG TABLET (FOR DETOX USE ONLY) PO ONE (10:00)
[2019-06-15] MEDS: NICOTINE 14 MG/24 HOURS TOPICAL PATCH TD SCH (10:32)
[2019-06-15] MEDS: PRENATAL VITAMINS W/ FOLIC ACID TABLET (FP) PO SCH (10:32)
[2019-06-15] MEDS: hydrOXYzine PAMOATE 25 MG CAPSULE (FP) PO PRN (10:34)
--- NOTE | 2019-06-15 12:49 | PN ---
BHS COWS - Scale Resting Pulse: 0= [place] 80 or Below Sweatin= Chills/Flushing Restless Observation: 0= Sits Still Pupil Size: 0= Normal to Room Light Bone or Joint Aches: 2= Severe Diffuse Aches Runny Nose/ Eye Tearin= Runny Nose/Eyes GI Upset > 30mins: 1= Stomach Cramp Tremor Observation of Outstretched Hands: 2= Slight Tremor Visible Yawning Observation: 0= None Anxiety or Irritability: 1=Feels Anxious/Irritable Goose Flesh Skin: 0=Smooth Skin COWS Score: 9 BHS Progress Note (SOAP) Subjective: Bad anxiety, interrupted sleep Objective: 06/15/19 12:45 Last Vital Signs Temp Pulse Resp BP Pulse Ox 98.2 F 50 L 16 128/89 06/15/19 09:52 06/15/19 09:52 06/15/19 09:52 06/15/19 09:52 Bradycardia noted, pulse 50: asymptomatic Labs reviewed: from 05/06/19, no admission labs available (patient refused; cbc , cmp reordered in AM) Assessment: 06/15/19 12:48 Withdrawal sxs Plan: Continue detox Encouraged PO water intake Admission labs reordered in AM as patient refused (CBC, CMP) Bradycardia noted: asymptomatic, encouraged ambulation and to drink more water, obtain EKG if becomes symptomatic
[2019-06-15] MEDS: THIAMINE HCL 100 MG TABLET (FP) PO SCH (22:41)
[2019-06-16] MEDS: hydrOXYzine PAMOATE 25 MG CAPSULE (FP) PO PRN (07:28)
[2019-06-16 09:25] VITALS: TEMP 98.2
[2019-06-16 09:27] VITALS: BP 134/83; PULSE 59
--- NOTE | 2019-06-16 09:47 | PN ---
[facility] Progress Note Note: pt did not want to stay to complete detox he states he was in detox a few days ago and wants to leave now. Pt walked off the unit and states I need to get the fuck out of here fuck you all. pt then stormed out. security was called and made aware. pt is AMA.
--- NOTE | 2019-06-16 09:53 | DS ---
[facility] Detox Discharge Summary Admission Date: 06/13/19 - History Present History: Cannabis Dependence, Cocaine Dependence, Opioid Dependence - Physical Exam Results Vital Signs: Vital Signs Temperature 98.2 F 06/16/19 09:26 Pulse Rate 59 L 06/16/19 09:26 Respiratory Rate 16 06/16/19 09:26 Blood Pressure 134/83 06/16/19 09:26 O2 Sat by Pulse Oximetry (%) - Treatment Patient has Accepted a Rehab Referral to: pt refused all paperwork/refused to sign - Medication Discharge Medications: Ambulatory Orders NK [No Known Home Medication] 11/30/18 - Diagnosis (1) Cannabis dependence, uncomplicated Current Visit: Yes Status: Chronic (2) Cocaine dependence, uncomplicated Current Visit: Yes Status: Chronic (3) IVDU (intravenous drug user) Current Visit: Yes Status: Chronic (4) Opioid dependence with withdrawal Current Visit: Yes Status: Chronic (5) Track raphael due to intravenous drug abuse Current Visit: Yes Status: Chronic (6) Nicotine dependence Current Visit: Yes Status: Chronic Qualifiers: Nicotine product type: cigarettes Substance use status: uncomplicated Qualified Code(s): F17.210 - Nicotine dependence, cigarettes, uncomplicated (7) Benzodiazepine abuse, episodic Current Visit: Yes Status: Suspected (8) Substance induced mood disorder Current Visit: Yes Status: Suspected (9) Substance-induced sleep disorder Current Visit: No Status: Acute (10) Marijuana abuse Current Visit: No Status: Chronic - AMA Did Patient Leave Against Medical Advice: Yes
[2019-06-16] MEDS ORDERED: METHADONE (DETOX) 10 MG, METHADONE (DETOX) 5 MG PO ONE (10:00)
[2019-06-17] MEDS ORDERED: METHADONE HCL 10 MG TABLET (FOR DETOX USE ONLY) PO ONE (10:00)
[2019-06-18] MEDS ORDERED: METHADONE HCL 5 MG TABLET (FOR DETOX USE ONLY) PO ONE (06:00)
== END 2019-06-16 09:25 | disposition left against medical advice (07) | DRG 770 ==
LOC: YASAS 18:29 → Y6N 22:37
PROVIDERS: ADMIT Allergy & Immunology; ATTEND Allergy & Immunology
PROC: HZ2ZZZZ Detoxification Services for Substance Abuse Treatment (ICD-10-PCS; principal; 2019-06-13)
DX: F11.23 Opioid dependence with withdrawal (principal); F14.20 Cocaine dependence, uncomplicated; F12.20 Cannabis dependence, uncomplicated; F13.90 Sedative, hypnotic, or anxiolytic use, unspecified, uncomplicated; F17.210 Nicotine dependence, cigarettes, uncomplicated; F19.24 Other psychoactive substance dependence with psychoactive substance-induced mood disorder; L90.5 Scar conditions and fibrosis of skin; R00.1 Bradycardia, unspecified

== ENCOUNTER 2019-11-24 18:10 | Inpatient (IN) | payer OTHER ==
[2019-11-24 18:51] VITALS: BMI 23.3
--- NOTE | 2019-11-24 20:28 | HP ---
"COWS - Scale Resting Pulse: 0= [place] 80 or Below Sweatin= No chills or Flushing Restless Observation: 1= Difficult to Sit Still Pupil Size: 0= Normal to Room Light Bone or Joint Aches: 4=Acute Joint/Muscle Pain Runny Nose/ Eye Tearin= None GI Upset > 30mins: 1= Stomach Cramp Tremor Observation: 0= None Yawning Observation: 1= 1-2x During Session Anxiety or Irritability: 2=Irritable/Anxious Goose Flesh Skin: 3=Piloerection COWS Score: 12 CIWA Score Nausea/Vomitin-No Nausea/No Vomiting Muscle Tremors: None Anxiety: 4-Mod. Anxious/Guarded Agitation: 3 Paroxysmal Sweats: 3 Orientation: 2-Disoriented Date<2 days Tacttile Disturbances: 0-None Auditory Disturbances: 0-None Visual Disturbances: 0-None Headache: 0-None Present CIWA-Ar Total Score: 12 - Admission Criteria OASAS Guidelines: Admission for Medically Managed Detox: Requires at least one of the followin. CIWA greater than 12 2. Seizures within the past 24 hours 3. Delirium tremens within the past 24 hours 4. Hallucinations within the past 24 hours 5. Acute intervention needed for co occurring medical disorder 6. Acute intervention needed for co occurring psychiatric disorder 7. Severe withdrawal that cannot be handled at a lower level of care (continued vomiting, continued diarrhea, abnormal vital signs) requiring intravenous medication and/or fluids 8. Admitting History and Physical - Smoking History Smoking history: Current every day smoker Have you smoked in the past 12 months: Yes Aproximately how many cigarettes per day: 10 - Alcohol/Substance Use Hx Alcohol Use: No Admission [facility] Chief Complaint: seeking detox from heroin/ xanax. c/o withdrawal sx's Allergies/Adverse Reactions: Allergies Allergy/AdvReac Type Severity Reaction Status Date / Time No Known Allergies Allergy Verified 11/24/19 18:37 History of Present Illness: here for poly susbstance abuse. reports daily use of heroin and xanax. last use 430 am. self referred. known to program. last here 06/13/19-06/16/19 for detox. client reports relapsing immediately after dc. denies any inpatient detox since. utox + bup. [employer] technician check no rx.+ ivdu, 8 drug overdose, last being 2 months ago. client denies hx/o seizures, black outs or any clean time in the past 12 months. lives alone, unemployed, denies legals Search Terms: charles clarke, 1980Search Date: 11/24/2019 20:22:12 PM The Drug Utilization Report below displays all of the controlled substance prescriptions, if any, that your patient has filled in the last twelve months. The information displayed on this report is compiled from pharmacy submissions to the Department, and accurately reflects the information as submitted by the pharmacies. This report was requested by: Nawaf Roberson | Reference #: [id number] There are no results for the search terms that you entered. Exam Limitations: No Limitations - Ebola screening Have you traveled outside of the country in the last 21 days: No Have you had contact with anyone from an Ebola affected area: No Have you been sick,other than usual withdrawal symptoms: No Do you have a fever: No - Review of Systems Constitutional: Chills, Loss of Appetite, Malaise, Changes in sleep, Unintentional Wgt. Loss EENT: reports: Nose Congestion Respiratory: reports: No Symptoms reported Cardiac: reports: No Symptoms Reported GI: reports: Constipated, Poor Fluid Intake, Abdominal cramping : reports: No Symptoms Reported Musculoskeletal: reports: Back Pain, Joint Pain, Neck Pain Integumentary: reports: Other (track boudreaux) Neuro: reports: No Symptoms reported Endocrine: reports: No Symptoms Reported Hematology: reports: No Symptoms Reported Psychiatric: reports: Orientated x3, Anxious, Depressed (denies si) Other Systems: Reviewed and Negative Patient History - Patient Medical History Hx Anemia: No Hx Asthma: No Hx Chronic Obstructive Pulmonary Disease (COPD): No Hx Cancer: No Hx Cardiac Disorders: No Hx Congestive Heart Failure: No Hx Hypertension: No Hx Hypercholesterolemia: No Hx Pacemaker: No HX Cerebrovascular Accident: No Hx Seizures: No Hx Dementia: No Hx Diabetes: No Hx Gastrointestinal Disorders: No Hx Liver Disease: No Hx Genitourinary Disorders: No Hx Sexually Transmitted Disorders: No Hx Renal Disease (ESRD): No Hx Thyroid Disease: No Hx Human Immunodeficiency Virus (HIV): No Hx Hepatitis C: No Hx Depression: Yes (no meds) Hx Suicide Attempt: No Hx Bipolar Disorder: No Hx Schizophrenia: No Other Medical History: anxiety - Patient Surgical History Past Surgical History: No Hx Neurologic Surgery: No Hx Cataract Extraction: No Hx Cardiac Surgery: No Hx Lung Surgery: No Hx Breast Surgery: No Hx Breast Biopsy: No Hx Abdominal Surgery: No Hx Appendectomy: No Hx Cholecystectomy: No Hx Genitourinary Surgery: No Hx Section: No Hx Orthopedic Surgery: No Anesthesia Reaction: No - PPD History Previous Implant?: Yes Documented Results: Negative w/proof Date: 11/18/18 Results: tb gold neg PPD to be Administered?: Yes - Smoking Cessation Smoking history: Current every day smoker Have you smoked in the past 12 months: Yes Aproximately how many cigarettes per day: 10 Cigars Per Day: 0 Hx Chewing Tobacco Use: No Initiated information on smoking cessation: Yes 'Breaking Loose' booklet given: 11/24/19 - Substance & Tx. History Hx Alcohol Use: No Hx Substance Use: Yes Substance Use Type: Cocaine, Heroin, Tranquilizers (xanax) Hx Substance Use Treatment: Yes ([facility]) - Substances abused Heroin Substance route: Injection Frequency: Daily Amount used: 50 bags Age of first use: 34 Date of last use: 11/24/19 Cocaine Substance route: Injection Frequency: Daily Amount used: 1/2gm Age of first use: 22 Date of last use: 11/23/19 Alprazolam (Xanax) Substance route: Inhalation Frequency: Daily Amount used: 6mg Age of first use: 34 Date of last use: 11/23/19 Admission Physical Exam S - Vital Signs Vital Signs: Vital Signs - 24 hr 11/24/19 18:38 Temperature 97.7 F Pulse Rate 66 Respiratory 18 Rate Blood Pressure 110/76 - Physical General Appearance: Yes: Moderate Distress, Irritable, Anxious HEENTM: Yes: EOMI, Normocephalic, Normal Voice, MILO, Pharynx Normal, Nasal Congestion Respiratory: Yes: Chest Non-Tender, Lungs Clear, Normal Breath Sounds, No Respiratory Distress, No Accessory Muscle Use Neck: Yes: No masses,lesions,Nodules, Supple, Trachea in good position Breast: Yes: Breasts Symetrical Cardiology: Yes: Regular Rhythm, Regular Rate, S1, S2 Abdominal: Yes: Non Tender, Soft, Increased Bowel Sounds Genitourinary: Yes: Within Normal Limits (no c/o) Back: Yes: Normal Inspection Musculoskeletal: Yes: full range of Motion, Gait Steady Extremities: Yes: Normal Capillary Refill, Normal Range of Motion, Non-Tender, Other (track boudreaux to arms and rle) Neurological: Yes: Fully Oriented, Alert, Motor Strength 5/5, Depressed Affect Integumentary: Yes: Dry, Warm, Track Boudreaux Lymphatic: Yes: Within Normal Limits - Diagnostic (1) Sedative, hypnotic or anxiolytic dependence with withdrawal, uncomplicated Current Visit: Yes Status: Acute (2) Depressed affect Current Visit: Yes Status: Suspected (3) Cocaine dependence, uncomplicated Current Visit: Yes Status: Acute (4) IVDU (intravenous drug user) Current Visit: Yes Status: Acute (5) Nicotine dependence Current Visit: Yes Status: Chronic Qualifiers: Nicotine product type: cigarettes Substance use status: uncomplicated Qualified Code(s): F17.210 - Nicotine dependence, cigarettes, uncomplicated (6) Opioid dependence with withdrawal Current Visit: Yes Status: Acute (7) Track boudreaux due to intravenous drug abuse Current Visit: Yes Status: Acute (8) Substance induced mood disorder Current Visit: Yes Status: Suspected Cleared for Admission [facility] - Detox or Rehab [facility] Level of Care: Medically Managed Detox Regimen/Protocol: Methadone/Librium Claeared for Rehab Admission: No Breathalyzer - Breathalyzer Breathalyzer: 0 Urine Drug Screen - Test Device Lot number: [id number] Expiration date: 01/18/21 - Control Is test valid?: No - Results Drug screen NEGATIVE: No Urine drug screen results: JAYNE-Cocaine, FEN-Fentanyl, MOP-Opiates, BZO- Benzodiazepines Inpatient Rehab Admission - Rehab Decision to Admit Inpatient rehab admission?: No"
[2019-11-24] MEDS ORDERED: MAGNESIUM CITRATE 300 ML BOTTLE PO PRN (20:36)
[2019-11-24] MEDS ORDERED: P-EPHED 60MG/TRIPROLIDI 2.5MG TABLET PO PRN (20:36)
[2019-11-24] MEDS ORDERED: MENTHOL/PHENOL 1 EACH UD MM PRN (20:36)
[2019-11-24] MEDS ORDERED: DICYCLOMINE HCL 10 MG CAPSULE PO PRN (20:36)
[2019-11-24] MEDS ORDERED: IBUPROFEN 400 MG TABLET (FP) PO PRN (20:36)
[2019-11-24] MEDS ORDERED: METHOCARBAMOL 500 MG TABLET PO PRN (20:36)
[2019-11-24] MEDS ORDERED: MAG HYDROX/AL HYDROX/SIMETH 30 ML UNIT-DOSE CUP PO PRN (20:36)
[2019-11-24] MEDS ORDERED: chlordiazePOXIDE HCL 25 MG CAPSULE PO PRN (20:36)
[2019-11-24] MEDS ORDERED: ONDANSETRON *ODT* 4 MG TABLET SL ONE (20:36)
[2019-11-24] MEDS ORDERED: cloNIDine HCL 0.1 MG TABLET PO PRN (20:36)
[2019-11-24] MEDS ORDERED: BISMUTH SUBSALICYLATE 524 MG/30 ML UD PO PRN (20:36)
[2019-11-24] MEDS ORDERED: NALOXONE HCL 0.4 MG/ML VIAL IM PRN (20:36)
[2019-11-24] MEDS ORDERED: guaiFENesin 200 MG/10 ML 10 ML UNIT-DOSE CUPS PO PRN (20:36)
[2019-11-24] MEDS ORDERED: METHADONE HCL 10 MG TABLET (FOR DETOX USE ONLY) PO ONE (20:36)
[2019-11-24] MEDS ORDERED: ACETAMINOPHEN 325 MG TABLET (FP) PO PRN ×2 (20:36)
[2019-11-24] MEDS ORDERED: MAGNESIUM HYDROX 2400MG/30ML ORAL SUSPENSION 30 ML CUP PO PRN (20:36)
[2019-11-24] MEDS ORDERED: NICOTINE POLACRILEX 2 MG GUM BUC PRN (20:36)
[2019-11-24] MEDS: chlordiazePOXIDE HCL 25 MG CAPSULE PO SCH (22:16)
[2019-11-24] MEDS: THIAMINE HCL 100 MG TABLET (FP) PO SCH (22:16)
[2019-11-24] MEDS: MELATONIN 5 MG TABLETS PO SCH (22:28)
[2019-11-25] MEDS: chlordiazePOXIDE HCL 25 MG CAPSULE PO SCH (05:59)
[2019-11-25] MEDS: hydrOXYzine PAMOATE 25 MG CAPSULE (FP) PO PRN (05:59)
[2019-11-25] MEDS ORDERED: METHADONE HCL 5 MG TABLET (FOR DETOX USE ONLY) ONE (09:33)
[2019-11-25] MEDS ORDERED: METHADONE HCL 10 MG TABLET (FOR DETOX USE ONLY) ONE (09:33)
[2019-11-25] MEDS ORDERED: METHADONE (DETOX) 20 MG, METHADONE (DETOX) 5 MG PO ONE (10:00)
[2019-11-25] MEDS ORDERED: diazePAM 5 MG TABLET PO PRN (10:14)
--- NOTE | 2019-11-25 10:28 | CONSULT ---
[facility] Psychiatric Consult - Data Date of interview: 11/25/19 Admission source: Self-referred Identifying data: Mr Jackson is a 39 years old Black male, unemployed, living alone seeking detox treatment for opioid, cocaine and benzodiazepine Substance Abuse History: Reports history of heroin, cocaine and xanax use. Refer to addiction counselor's summary for further information Medical History: Unremarkable. Smokes 10 cigarettes daily Psychiatric History: Patient was approached multiple times at bedside. He has been sleeping all day. Told nursing staff:"I don't want to see psychiatrist"
[2019-11-25] MEDS: NICOTINE 21 MG/24 HOURS TOPICAL PATCH TD SCH (10:33)
[2019-11-25] MEDS: PRENATAL VITAMINS W/ FOLIC ACID TABLET (FP) PO SCH (10:33)
--- NOTE | 2019-11-25 11:24 | PN ---
S CIWA - CIWA Score Nausea/Vomitin Muscle Tremors: 2 Anxiety: 3 Agitation: 3 Paroxysmal Sweats: No Perspiration Orientation: 0-Oriented Tacttile Disturbances: 1-Very Mild Itch/Numbness Auditory Disturbances: 0-None Visual Disturbances: 0-None Headache: 2-Mild CIWA-Ar Total Score: 13 BHS COWS - Scale Resting Pulse: 0= ND 80 or Below Sweatin= No chills or Flushing Restless Observation: 3= Extraneous Movement Pupil Size: 1= Pupils >than Normal Bone or Joint Aches: 2= Severe Diffuse Aches Runny Nose/ Eye Tearin= Runny Nose/Eyes GI Upset > 30mins: 2= Nausea/Diarrhea Tremor Observation of Outstretched Hands: 2= Slight Tremor Visible Yawning Observation: 1= 1-2x During Session Anxiety or Irritability: 2=Irritable/Anxious Goose Flesh Skin: 0=Smooth Skin COWS Score: 15 BHS Progress Note (SOAP) Subjective: alert,irritable,anxious,interrupted sleep,pain in the body and jacinda k,tremor,nausea,diarrhea Objective: 11/25/19 11:22 Vital Signs Temperature 98.9 F 11/25/19 08:58 Pulse Rate 67 11/25/19 08:58 Respiratory Rate 18 11/25/19 08:58 Blood Pressure 124/75 11/25/19 08:58 O2 Sat by Pulse Oximetry (%) 99 11/25/19 06:34 11/25/19 11:23 patient woul like to hve blood tests in am not today Assessment: 11/25/19 11:23 withdrawal symptom Plan: continue detox methadone and valium regimen
--- NOTE | 2019-11-25 12:12 | EKG ---
Test Reason : Blood Pressure : / mmHG Vent. Rate : 056 BPM Atrial Rate : 056 BPM P-R Int : 140 ms QRS Dur : 092 ms QT Int : 416 ms P-R-T Axes : 032 058 040 degrees QTc Int : 401 ms SINUS BRADYCARDIA OTHERWISE NORMAL ECG WHEN COMPARED WITH ECG OF 05-MAY-2019 21:26, NO SIGNIFICANT CHANGE WAS FOUND Confirmed by MD Izquierdo Daniel ([id number]) on 11/25/2019 12:12:25 PM Referred By: Confirmed By:Sal Izquierdo MD
[2019-11-25] MEDS: diazePAM 5 MG TABLET PO SCH ×2 (14:07→22:14)
[2019-11-25] MEDS: THIAMINE HCL 100 MG TABLET (FP) PO SCH (22:14)
[2019-11-25] MEDS: MELATONIN 5 MG TABLETS PO SCH (22:15)
[2019-11-26] MEDS ORDERED: chlordiazePOXIDE HCL 25 MG CAPSULE PO SCH (05:00)
[2019-11-26] MEDS: hydrOXYzine PAMOATE 25 MG CAPSULE (FP) PO PRN (06:10)
[2019-11-26] MEDS: diazePAM 5 MG TABLET PO SCH (06:10)
[2019-11-26] MEDS: NICOTINE 21 MG/24 HOURS TOPICAL PATCH TD SCH (09:49)
[2019-11-26] MEDS: PRENATAL VITAMINS W/ FOLIC ACID TABLET (FP) PO SCH (09:50)
[2019-11-26 09:54] VITALS: BP 132/80; PULSE 55; TEMP 97.2
[2019-11-26] MEDS ORDERED: METHADONE HCL 10 MG TABLET (FOR DETOX USE ONLY) PO ONE (10:00)
--- NOTE | 2019-11-26 11:28 | PN ---
[facility] CIWA - CIWA Score Nausea/Vomitin-No Nausea/No Vomiting Muscle Tremors: 3 Anxiety: 3 Agitation: 3 Paroxysmal Sweats: 3 Orientation: 0-Oriented Tacttile Disturbances: 0-None Auditory Disturbances: 0-None Visual Disturbances: 0-None Headache: 1-Very Mild CIWA-Ar Total Score: 13 BHS COWS - Scale Resting Pulse: 0= NE 80 or Below Sweatin= Chills/Flushing Restless Observation: 1= Difficult to Sit Still Pupil Size: 0= Normal to Room Light Bone or Joint Aches: 2= Severe Diffuse Aches Runny Nose/ Eye Tearin= Nasal Congestion GI Upset > 30mins: 0= None Tremor Observation of Outstretched Hands: 1= Tremor [place], Not Seen Yawning Observation: 1= 1-2x During Session Anxiety or Irritability: 2=Irritable/Anxious Goose Flesh Skin: 0=Smooth Skin COWS Score: 9 [facility] Progress Note (SOAP) Subjective: agitation sweats shakes interrupted sleep Objective: 11/26/19 11:27 Vital Signs Temperature 97.2 F L 11/26/19 08:58 Pulse Rate 55 L 11/26/19 08:58 Respiratory Rate 18 11/26/19 08:58 Blood Pressure 132/80 11/26/19 08:58 O2 Sat by Pulse Oximetry (%) 100 11/26/19 05:30 pending labs [id number] lying in bed no acute distress Assessment: 11/26/19 11:27 withdrawals Plan: continue detox increase fluids
[2019-11-26] MEDS ORDERED: NALOXONE (NARCAN) HCL 4 MG/0.1 ML SPRAY NS ONE (12:04)
--- NOTE | 2019-11-26 12:04 | PN ---
[facility] Progress Note Note: pt did not want to stay and continue his detox. pt was advised of his purpose for detox and how a positive outcome can be available if he sticks to the detox protocol. pt was also advised to stay and prevent relapse, seizures, DT, OD and or loss, however, pt chose to sign out AMA. narcan kit sent to his pharmacy, pt was made aware.
--- NOTE | 2019-11-26 12:06 | DS ---
[facility] Detox Discharge Summary Admission Date: 11/24/19 - History Present History: Cannabis Dependence, Cocaine Dependence, Opioid Dependence, Sedative Dependence - Physical Exam Results Vital Signs: Vital Signs Temperature 97.2 F L 11/26/19 08:58 Pulse Rate 55 L 11/26/19 08:58 Respiratory Rate 18 11/26/19 08:58 Blood Pressure 132/80 11/26/19 08:58 O2 Sat by Pulse Oximetry (%) 100 11/26/19 05:30 Pertinent Admission Physical Exam Findings: Vital Signs Temperature 97.2 F L 11/26/19 08:58 Pulse Rate 55 L 11/26/19 08:58 Respiratory Rate 18 11/26/19 08:58 Blood Pressure 132/80 11/26/19 08:58 O2 Sat by Pulse Oximetry (%) 100 11/26/19 05:30 no blood work was drawn because pt refused aaox3 ambulating pt signed out AMA - Treatment Hospital Course: Rehab Referral Accepted - Medication Discharge Medications: Ambulatory Orders NK [No Known Home Medication] 11/30/18 - Diagnosis (1) Cocaine dependence, uncomplicated Status: Acute (2) IVDU (intravenous drug user) Status: Acute (3) Opioid dependence with withdrawal Status: Acute (4) Sedative, hypnotic or anxiolytic dependence with withdrawal, uncomplicated Status: Acute (5) Substance-induced sleep disorder Status: Acute (6) Track raphael due to intravenous drug abuse Status: Acute (7) Cannabis dependence, uncomplicated Status: Chronic (8) Marijuana abuse Status: Chronic (9) Nicotine dependence Status: Chronic Qualifiers: Nicotine product type: cigarettes Substance use status: uncomplicated Qualified Code(s): F17.210 - Nicotine dependence, cigarettes, uncomplicated (10) Benzodiazepine abuse, episodic Status: Suspected (11) Depressed affect Status: Suspected (12) Substance induced mood disorder Status: Suspected - AMA Did Patient Leave Against Medical Advice: Yes
[2019-11-27] MEDS ORDERED: chlordiazePOXIDE HCL 10 MG CAPSULE PO PRN
[2019-11-27] MEDS ORDERED: chlordiazePOXIDE HCL 10 MG CAPSULE PO SCH (05:00)
[2019-11-27] MEDS ORDERED: diazePAM 5 MG TABLET PO SCH (06:00)
[2019-11-27] MEDS ORDERED: METHADONE (DETOX) 10 MG, METHADONE (DETOX) 5 MG PO ONE (10:00)
[2019-11-28] MEDS ORDERED: chlordiazePOXIDE HCL 10 MG CAPSULE PO SCH (05:00)
[2019-11-28] MEDS ORDERED: diazePAM 5 MG TABLET PO ONE (06:00)
[2019-11-28] MEDS ORDERED: METHADONE HCL 10 MG TABLET (FOR DETOX USE ONLY) PO ONE (10:00)
[2019-11-29] MEDS ORDERED: chlordiazePOXIDE HCL 10 MG CAPSULE PO ONE (05:00)
[2019-11-29] MEDS ORDERED: METHADONE HCL 5 MG TABLET (FOR DETOX USE ONLY) PO ONE (06:00)
== END 2019-11-26 11:00 | disposition left against medical advice (07) | DRG 770 ==
LOC: YASAS 18:10 → Y6N 21:11
PROVIDERS: ADMIT Allergy & Immunology; ATTEND Allergy & Immunology
PROC: HZ2ZZZZ Detoxification Services for Substance Abuse Treatment (ICD-10-PCS; principal; 2019-11-24)
DX: F11.23 Opioid dependence with withdrawal (principal); F13.230 Sedative, hypnotic or anxiolytic dependence with withdrawal, uncomplicated; F14.20 Cocaine dependence, uncomplicated; F12.20 Cannabis dependence, uncomplicated; F17.210 Nicotine dependence, cigarettes, uncomplicated; F19.24 Other psychoactive substance dependence with psychoactive substance-induced mood disorder; F32.9 Major depressive disorder, single episode, unspecified; R45.89 Other symptoms and signs involving emotional state
CPT/HCPCS: 93005; 93010; Q0162; U0003

== ENCOUNTER 2020-06-11 21:11 | Inpatient (IN) | payer OTHER ==
[2020-06-11] MEDS ORDERED: IBUPROFEN 400 MG TABLET (FP) PO PRN (23:43)
[2020-06-11] MEDS ORDERED: ONDANSETRON *ODT* 4 MG TABLET SL PRN (23:43)
[2020-06-11] MEDS ORDERED: P-EPHED 60MG/TRIPROLIDI 2.5MG TABLET PO PRN (23:43)
[2020-06-11] MEDS ORDERED: MAGNESIUM CITRATE 300 ML BOTTLE PO PRN (23:43)
[2020-06-11] MEDS ORDERED: MENTHOL/PHENOL 1 EACH UD MM PRN (23:43)
[2020-06-11] MEDS ORDERED: DICYCLOMINE HCL 10 MG CAPSULE PO PRN (23:43)
[2020-06-11] MEDS ORDERED: MAG HYDROX/AL HYDROX/SIMETH 30 ML UNIT-DOSE CUP PO PRN (23:43)
[2020-06-11] MEDS ORDERED: BISMUTH SUBSALICYLATE 524 MG/30 ML UD PO PRN (23:43)
[2020-06-11] MEDS ORDERED: NICOTINE POLACRILEX 2 MG GUM BUC PRN (23:43)
[2020-06-11] MEDS ORDERED: guaiFENesin 200 MG/10 ML 10 ML UNIT-DOSE CUPS PO PRN (23:43)
[2020-06-11] MEDS ORDERED: METHOCARBAMOL 500 MG TABLET PO PRN (23:43)
[2020-06-11] MEDS ORDERED: MAGNESIUM HYDROX 2400MG/30ML ORAL SUSPENSION 30 ML CUP PO PRN (23:43)
[2020-06-11] MEDS ORDERED: ACETAMINOPHEN 325 MG TABLET (FP) PO PRN ×2 (23:43)
[2020-06-12] MEDS ORDERED: METHADONE HCL 10 MG TABLET (FOR DETOX USE ONLY) PO ONE (00:03)
[2020-06-12 00:21] VITALS: BMI 25.8
[2020-06-12] MEDS: hydrOXYzine PAMOATE 25 MG CAPSULE (FP) PO PRN ×3 (00:59→14:31)
[2020-06-12] MEDS ORDERED: NICOTINE 14 MG/24 HOURS TOPICAL PATCH TD SCH (10:00)
[2020-06-12] MEDS ORDERED: PRENATAL VITAMINS W/ FOLIC ACID TABLET (FP) PO SCH (10:00)
[2020-06-12] MEDS ORDERED: METHADONE HCL 10 MG TABLET PO ONE (10:00)
[2020-06-12] MEDS: cloNIDine HCL 0.1 MG TABLET PO PRN ×2 (10:37→15:21)
[2020-06-12 13:09] VITALS: TEMP 96.7
[2020-06-12 15:23] VITALS: BP 139/93; PULSE 84
[2020-06-12] MEDS ORDERED: THIAMINE HCL 100 MG TABLET (FP) PO SCH (22:00)
[2020-06-12] MEDS ORDERED: MELATONIN 5 MG TABLETS PO SCH (22:00)
[2020-06-13] MEDS ORDERED: METHADONE (DETOX) 20 MG, METHADONE (DETOX) 5 MG PO ONE (10:00)
[2020-06-14] MEDS ORDERED: METHADONE HCL 10 MG TABLET (FOR DETOX USE ONLY) PO ONE (10:00)
[2020-06-15] MEDS ORDERED: METHADONE (DETOX) 10 MG, METHADONE (DETOX) 5 MG PO ONE (10:00)
[2020-06-16] MEDS ORDERED: METHADONE HCL 10 MG TABLET (FOR DETOX USE ONLY) PO ONE (10:00)
[2020-06-17] MEDS ORDERED: METHADONE HCL 5 MG TABLET (FOR DETOX USE ONLY) PO ONE (06:00)
== END 2020-06-12 16:52 | disposition left against medical advice (07) | DRG 770 ==
LOC: YASAS 21:11 → Y3N 23:56
PROVIDERS: ADMIT Allergy & Immunology; ATTEND Allergy & Immunology
PROC: HZ2ZZZZ Detoxification Services for Substance Abuse Treatment (ICD-10-PCS; principal; 2020-06-11)
DX: F11.23 Opioid dependence with withdrawal (principal); F10.20 Alcohol dependence, uncomplicated; F17.210 Nicotine dependence, cigarettes, uncomplicated; F19.282 Other psychoactive substance dependence with psychoactive substance-induced sleep disorder; F19.24 Other psychoactive substance dependence with psychoactive substance-induced mood disorder; J34.89 Other specified disorders of nose and nasal sinuses; R45.89 Other symptoms and signs involving emotional state; Z86.2 Personal history of diseases of the blood and blood-forming organs and certain disorders involving the immune mechanism; Z86.19 Personal history of other infectious and parasitic diseases; Z86.59 Personal history of other mental and behavioral disorders
CPT/HCPCS: C9803; J0735; U0003